=== PATIENT | male | born 1965 | race Two or more races ===

== ENCOUNTER → 2024-12-19 | Outpatient (CLI) | payer BC, SELFPAY ==
[2024-12-19 14:25] LABS: Urea Breath Test Negative (Negative)
[2024-12-20 09:16] LABS: Clostridium Difficile PCR Negative (Negative)
[2024-12-24 22:08] LABS: Source STOOL
== END | disposition home or self-care (01) ==
LOC: COPL 12:20
PROVIDERS: PCP Internal Medicine; Referring Provider Internal Medicine; Visit Provider Internal Medicine
DX: R19.7 Diarrhea, unspecified (principal); Z12.11 Encounter for screening for malignant neoplasm of colon
CPT/HCPCS: 83013; 83014; 87015; 87045; 87046; 87177; 87209; 87493; 87899

== ENCOUNTER → 2025-02-24 | Outpatient (CLI) | payer BC, SELFPAY ==
[2025-02-24 10:40] LABS: Basophils # (Auto) 0.1 Thou/mm3 (0.0-0.2); Basophils % (Auto) 1 % (0-2.5); Eosinophils # (Auto) 0.3 Thou/mm3 (0.0-0.5); Eosinophils % (Auto) 5 % (0-10); Hematocrit 42.6 % (41.0-53.0); Hemoglobin 14.7 g/dL (13.5-16.0); Immature Granulocytes Auto 0.01 Thou/mm3 (0.00-0.00); Lymphocytes # (Auto) 1.8 Thou/mm3 (1.0-4.8); Lymphocytes % (Auto) 31 % (10-50); Mean Corpuscular HGB Conc 34.5 g/dl (31.0-37.0); Mean Corpuscular Hemoglobin 30.9 pg (25.0-35.0); Mean Corpuscular Volume 90 fL (80-100); Monocytes # (Auto) 0.5 Thou/mm3 (0.0-0.8); Monocytes % (Auto) 8 % (0-12); Neutrophils # (Auto) 3.3 Thou/mm3 (1.8-7.7); Neutrophils % (Auto) 54 % (37-80); Nucleated Red Blood Cell # 0.00 Thou/mm3 (0.00-0.00); Nucleated Red Blood Cell % 0 /100 WBC (0); Platelet Count 175 Thou/mm3 (140-440); RDW Standard Deviation 38.7 fL (35.1-43.9); Red Blood Count 4.76 Miln/mm3 (4.50-5.90); White Blood Count 6.0 Thou/mm3 (3.8-10.6)
[2025-02-24 10:52] LABS: Glucose Estimated Average 120 mg/dL (80-131); Hemoglobin A1C 5.8 % Hgb (4.8-6.0)
[2025-02-24 10:59] LABS: Alanine Aminotransferase 20 U/L (10-49); Albumin, Serum 4.2 gm/dL (3.4-4.8); Albumin/Globulin Ratio 1.6 (1.2-2.2); Alkaline Phosphatase 70 U/L (46-116); Anion Gap 8 (7-16); Aspartate Amino Transferase 18 U/L (0-34); BUN/Creatinine Ratio 15 Ratio (12-20); Bilirubin,Total 1.1 mg/dL (0.3-1.2); Blood Urea Nitrogen 15 mg/dL (9-23); Calcium 9.5 mg/dL (8.3-10.6); Calcium (Corrected) 9.5 mg/dL (8.5-10.1); Carbon Dioxide 27.0 mMol/L (20.0-31.0); Cardiac Risk Estimate 3.4 RATIO (4.0-6.7); Chloride 108 mMol/L (98-107); Cholesterol 147 mg/dL (132-200); Creatinine (Component) 1.0 mg/dL (0.6-1.3); Free T4 (Free Thyroxine) 1.33 ng/dL (0.89-1.76); Globulin 2.6 gm/dL (2.3-3.5); Glucose 114 mg/dL (74-106); HDL Cholesterol 43 mg/dL (40-60); LDL Cholesterol,Calculated 84 mg/dL (0-130); Osmolality,Calculated 286 (275-295); Potassium 4.6 mMol/L (3.4-5.1); Sodium 143 mMol/L (136-145); Thyroid Stimulating Hormone 2.39 uIU/mL (0.55-4.78); Total Protein 6.8 gm/dL (5.7-8.2); Triglycerides 99 mg/dL (30-150); eGFR > 60 See Note
[2025-02-24 11:03] LABS: Prostate Specific Antigen 1.06 ng/mL (0-4.00)
[2025-02-24 11:07] LABS: Vitamin D 25 Hydroxy Total 28.9 ng/mL (7.3-40.2)
== END | disposition home or self-care (01) ==
LOC: COPL 09:24
PROVIDERS: PCP Internal Medicine; Referring Provider Internal Medicine; Visit Provider Internal Medicine
DX: Z00.00 Encounter for general adult medical examination without abnormal findings (principal); E11.9 Type 2 diabetes mellitus without complications; N40.1 Benign prostatic hyperplasia with lower urinary tract symptoms; E55.9 Vitamin D deficiency, unspecified; E78.2 Mixed hyperlipidemia; E03.9 Hypothyroidism, unspecified
CPT/HCPCS: 36415; 80053; 80061; 82306; 83036; 84153; 84439; 84443; 85025